=== PATIENT | female | born 1975 | race Hispanic/Latino ===

== ENCOUNTER 2016-08-21 06:36 | Inpatient (IN) | payer BC, OTHER ==
[2016-05-15 13:35] VITALS: BMI 30.1
--- NOTE | 2016-08-21 07:19 | OBHP ---
Datetime: 08/21/2016 07:13 IP Adm Impression: Term, intrauterine ; Active labor IP Admit Plan: Admit to unit; Initiate labor protocol Admit Comment, IP Provider: Chief complaint-contractions HPI 40 y/i at38.5 wga with c/o contractions since yesterday.Patient denies vaginal bleeding, loss of fluid.reports active movement.Denies nausea, vomiting, headache, chest pain, shortness of breath, numbness or tingling in hands and feet coure AMA; PNC with dr lerma PMH denies PSH denies OBGYN HX -NVDX2 at term Social hx denies tobacco,alcohol or illicit drug use Exam see exam section A/P 40 y/o at 38.5 wga in labor -admit -see orders -discussed with dr lerma Pelvic Type - PN: Adequate Extremities - PN: Normal Abdomen - PN: Normal Back - PN: Normal Lungs - PN: Normal Heart - PN: Normal Neurologic - PN: Normal General - PN: Normal Weight - Estimated: 3200 Presentation-Admit: Vertex Contraction Comments Provider: irregular Gestation - Est Wks by US: 38.5 IP Hx Assessment: The History has been Reviewed and is Current EGA AdmitDate IP: 38.5 Vital Signs Provider: Reviewed; Within Normal Limits IP Chief Complaint: Uterine contractions FHR Category Provider Fetus A: Category I Dilatation, Provider: 3-4 Effacement, Provider: 70 Station, Provider: -2 Genitourinary Exam: Normal DTRs - PN: Normal
--- NOTE | 2016-08-21 07:29 | OBHP ---
Datetime: 08/21/2016 07:13 Admit Comment, IP Provider: Chief complaint-contractions HPI 40 y/o at38.5 wga with c/o contractions since yesterday.Patient denies vaginal bleeding, loss of fluid.reports active movement.Denies nausea, vomiting, headache, chest pain, shortness of breath, numbness or tingling in hands and feet coure AMA; PNC with dr lerma PMH denies PSH denies OBGYN HX -NVDX2 at term Social hx denies tobacco,alcohol or illicit drug use Exam see exam section A/P 40 y/o at 38.5 wga in labor -admit -see orders -discussed with dr lerma 7.28 am correction patient is 41y/o and not 40 y/o
--- NOTE | 2016-08-21 07:30 | OBADHP ---
Datetime: 08/21/2016 07:13 Admit Comment, IP Provider: Chief complaint-contractions HPI 41 y/o at38.5 wga with c/o contractions since yesterday.Patient denies vaginal bleeding, loss of fluid.reports active movement.Denies nausea, vomiting, headache, chest pain, shortness of breath, numbness or tingling in hands and feet coure AMA; PNC with dr lerma PMH vertigo PSH mole removalx2; beaast biopsy OBGYN HX -NVDX2 at term Social hx denies tobacco,alcohol or illicit drug use Exam see exam section A/P 41 y/o at 38.5 wga in labor -admit -see orders -discussed with dr lerma Pelvic Type - PN: Adequate Extremities - PN: Normal Abdomen - PN: Normal Back - PN: Normal Lungs - PN: Normal Heart - PN: Normal Neurologic - PN: Normal General - PN: Normal Weight - Estimated: 3200 Presentation-Admit: Vertex Contraction Comments Provider: irregular Gestation - Est Wks by US: 38.5 IP Hx Assessment: The History has been Reviewed and is Current Vital Signs Provider: Reviewed; Within Normal Limits IP Chief Complaint: Uterine contractions FHR Category Provider Fetus A: Category I Dilatation, Provider: 3-4 Effacement, Provider: 70 Station, Provider: -2 Genitourinary Exam: Normal DTRs - PN: Normal EGA AdmitDate IP: 38.5 IP Adm Impression: Term, intrauterine ; Active labor IP Admit Plan: Admit to unit; Initiate labor protocol Datetime: 05/15/2016 14:54 FHR - Baseline A Provider: 140 Comments, ACOG Physical Exam: Abdomen garvid and non tender; no rebound or guadring; no cva tenderne ss Speculum exam vulva no lesions vagina no blood; physiologic appearing discharge cervix closed/thick and high NICHD Variability Prov Fetus A: Moderate 6-25bpm NICHD Decel Fetus A IP Provider: None
[2016-08-21] MEDS ORDERED: Oxytocin 30 UNIT 500 ML IV PRN (07:31)
[2016-08-21] MEDS ORDERED: Oxytocin 30 UNIT 500 ML IV ONE (07:44)
[2016-08-21 07:59] LABS: BASO % 0.3 % (0.0-2.0); EOS # 0.1 K/uL (0.0-0.7); EOS % 0.9 % (0.0-4.0); HEMATOCRIT 32.9 % (34.0-47.0); LYMPH # 2.2 K/uL (1.0-4.3); LYMPH % 25.7 % (20.0-40.0); MEAN CELL VOLUME 80.2 fL (81.0-99.0); MEAN CORPUSCULAR HEMOGLOBIN 26.3 pg (27.0-31.0); MEAN CORPUSCULAR HGB CONC 32.8 g/dL (33.0-37.0); MEAN PLATELET VOLUME 9.4 fL (7.2-11.7); MONO # 0.7 K/uL (0.0-0.8); MONO % 8.2 % (0.0-10.0); RED CELL DISTRIBUTION WIDTH 14.4 % (11.5-14.5); WHITE BLOOD COUNT 8.5 K/uL (4.8-10.8)
[2016-08-21 08:14] LABS: RBC URINE 33 /hpf (0-3); URINE BACTERIA OCC (<OCC); URINE BILIRUBIN NEGATIVE (NEGATIVE); URINE BLOOD 2+ (NEGATIVE); URINE COLOR Amber (YELLOW); URINE GLUCOSE (UA) NORMAL (Normal); URINE KETONE NEGATIVE (NEGATIVE); URINE LEUKOCYTE ESTERASE 3+ Leu/uL (Negative); URINE PROTEIN 1+ mg/dL (NEGATIVE); URINE UROBILINOGEN NORMAL mg/dL (0.2-1.0); WBC URINE 116 /hpf (0-5)
[2016-08-21 08:15] LABS: CHLORIDE 101 mmol/L (98-107); SODIUM 135 mmol/L (132-148)
[2016-08-21 08:16] LABS: POTASSIUM 4.1 mmol/L (3.6-5.2)
[2016-08-21 08:18] LABS: ALB/GLOB RATIO 1.1 (1.0-2.1); ALKALINE PHOSPHATASE 115 U/L (38-126); ALT/SGPT 8 U/L (9-52); AST/SGOT 23 U/L (14-36); BILIRUBIN,TOTAL 0.5 mg/dL (0.2-1.3); BLOOD UREA NITROGEN 13 mg/dL (7-17); CALCIUM 8.5 mg/dl (8.6-10.4); CARBON DIOXIDE 21 mmol/L (22-30); GFR AFRICAN-AMERICAN > 60; GLUCOSE,RANDOM 81 mg/dL (65-105); TOTAL PROTEIN 6.9 g/dL (6.3-8.3)
[2016-08-21] MEDS ORDERED: Bupivacaine 0.125%/FentaNYL 200 ML EPI ONE (12:10)
--- NOTE | 2016-08-21 13:42 | OBPN ---
Datetime: 08/21/2016 13:36 IP Progress Impression: Normal progression of labor; Reassuring heart rate IP Informed Consent Obtain: Vaginal Delivery IP Procedures: Artificial ROM IP Progress Plan: Continue present management; Augmentation Membranes, Provider: Ruptured Amniotic Fluid Color, Provider: Clear Contraction Comments Provider: q 2-3 min FHR - Baseline A Provider: 140 Gestation - Est Wks by US: 38.5 Presentation-Admit: Vertex IP Progress Note Comment: Pt seen and examined after admission, examined, c/o of increasing pain s/p epidural VSS EFM: see above TOCO: q 2-3 min Pitocin 12 mu/min a/p AROM, clear fluid A/P P2 @ 38.5 wks GA AMA in labor -s/p AROM -cont pitocin as per protocol -Currently tracing Victoria I, if Cat II/ or decels will d/c pitocoin, oxygne, left lateral decubitus psoiton, -cont current managment Vital Signs Provider: Reviewed; Within Normal Limits NICHD Accel Fetus A IP Provider: 15X15 NICHD Variability Prov Fetus A: Moderate 6-25bpm Dilatation, Provider: 5 Effacement, Provider: 80 Station, Provider: -2 NICHD Decel Fetus A IP Provider: Variable Datetime: 08/21/2016 07:13 Weight - Estimated: 3200 FHR Category Provider Fetus A: Category I
[2016-08-21] MEDS ORDERED: cefOXitin IV 2 gm in Dextrose 50 ML IVPB ONE (16:57)
[2016-08-21] MEDS ORDERED: Sodium Citrate/Citric Acid 15 ml Sol PO STA (16:58)
[2016-08-21] MEDS ORDERED: Sodium Citrate/Citric Acid 15 ml Sol ONE (16:58)
[2016-08-21] MEDS: cefOXitin IV 2 gm in Dextrose 50 ML IVPB SCH (17:00)
[2016-08-21] MEDS ORDERED: Oxytocin 20 units in LR 2,000 ML IV ONE (17:03)
--- NOTE | 2016-08-21 17:06 | OBPN ---
Datetime: 08/21/2016 17:03 IP Progress Impression: Reassuring heart rate IP Informed Consent Obtain: Section Delivery IP Progress Plan: Deliver- Section Membranes, Provider: Ruptured Contraction Comments Provider: q 2-3 min FHR - Baseline A Provider: 145 Gestation - Est Wks by US: 38.5 Presentation-Admit: Vertex IP Progress Note Comment: Pt seen adn examiend with recurrent declerlation despite oxygen, left late ral ivh unable to continue wiht piotocn due ot anorml trancing iwth failure ot progress r/b/a/i of primary cesearen section not limited to bleeding, infection, injury to bowel bladder or other organs, blood transfuion pt agreed, consent signed VSS VE see above Pitocin d/c A/P P2 @ 38.5 wks with NRFHT remote from delivery -for PLTCS -OR/Anesthesia aware Vital Signs Provider: Reviewed FHR Category Provider Fetus A: Category II NICHD Variability Prov Fetus A: Moderate 6-25bpm Dilatation, Provider: 6 Effacement, Provider: 80 Station, Provider: -2 NICHD Decel Fetus A IP Provider: Late; Prolonged
[2016-08-21] MEDS ORDERED: Lidocaine 2% MPF (5 ml) Inj ONE (17:11)
[2016-08-21] MEDS ORDERED: Morphine 1 mg/ml preservative-free Inj(Duramorph) ONE (17:13)
[2016-08-21] MEDS ORDERED: Oxycodone/Acetaminophen 5/325 mg Tab PO PRN (17:19)
[2016-08-21] MEDS ORDERED: Acetaminophen IV 1,000 MG in Premixed IV 1 EA IV STA (18:23)
[2016-08-21] MEDS ORDERED: Naloxone 0.4 mg/ml Inj (Adult) IVP PRN (18:24)
[2016-08-21] MEDS ORDERED: ePHEDrine 50 mg/ml Inj ONE (18:34)
--- NOTE | 2016-08-21 18:43 | PCM.SURG1 ---
Surgeon's Initial Post Op Note - Surgeon's Notes Surgeon: Sera Muñoz MD Scientific Director: John Pelletier MD Type of Anesthesia: Spinal Anesthesia Administered By: Dr Deng Pre-Operative Diagnosis: Non reassuring heart tracing, remote from delivery Operative Findings: Live female infant, cephalic presention, compound presentation, ebl 700 weight of 8lbs 4 ounces, normal uterus, tubes and ovaries bilaterally, striper present at delivery. Dr Pelletier was salesperson surgical appliances and was present for entire case and essential in ganing entry, retraction, expsouer, holding bladder blade, helping to push up head, deliverign , closing all layers, obtaining hemostasis. Post-Operative Diagnosis: same as above Operation Performed: primary low transverse cesearean section Specimen/Specimens Removed: placenta Estimated Blood Loss: EBL {In ML}: 700 Blood Products Given: N/A Drains Used: No Drains Post-Op Condition: Good Date of Surgery/Procedure: 08/21/16 Time of Surgery/Procedure: 17:30
--- NOTE | 2016-08-21 18:50 | OBDS ---
DELIVERY PERSONNEL Delivery Doctor: Trey Muñoz MD Scrub Nurse: Karen Catherine OBT Lithostripper: Chana Cam RN/kim Anesthesiologist: omkar MATERNAL INFORMATION Delivery Anesthesia: Epidural; Spinal Medications in Delivery: pitocin 20/iv tylanol Estimated Blood Loss (ml): 700 Placenta Cultured: Yes Maternal Complications: Other Other Maternal Complications: category 2,none reasuring fhr Provider Comments: live femlae infatn, compound presentation, nuchal x 1 reduced, agpars 9,9 weight of 8bls 4 ounces ebl 700, ivf 2000ml LABOR SUMMARY EDC: 08/30/2016 00:00 No. Babies in Womb: 1 Attempted: No Labor Anesthesia: Epidural LABOR INFORMATION Onset of Labor: 08/21/2016 15:00 Oxytocin: Augmentation Group B Beta Strep: Negative Antibiotics # of Doses: 1 Antibiotics Time of Last Dose: 1700 Steroids Given: None Reason Steroids Not Administered: Not Applicable MEMBRANES Membranes Rupture Method: Artificial Amniotic Fluid Color: Clear Amniotic Fluid Amount: Moderate Amniotic Fluid Odor: Normal STAGES OF LABOR Stage 3 hrs: 0 Stage 3 min: 1 Total Time in Labor hrs: 2 Total Time in Labor min: 34 VAGINAL DELIVERY Episiotomy: None Laceration Extension: N/A Laceration Type: None CSECTION DELIVERY Primary Indication: iup 38.5 pc/s Secondary Indication: distress CSection Urgency: Emergency CSection Incidence: Primary Labor: Labor Elective: Nonelective CSection Incision: Lower Uterine Transverse BABY A INFORMATION Delivery Date/Time: 08/21/2016 17:33 Method of Delivery: Born in Route : No : N/A Forceps: N/A Vacuum Extraction: N/A Shoulder Dystocia : No SHOULDER DYSTOCIA BABY A Delivery Date/Time: 08/21/2016 17:33 PRESENTATION/POSITION BABY A Presentation: Cephalic Cephalic Presentation: compound Breech Presentation: N/A PLACENTA INFORMATION BABY A Placenta Delivery Time : 08/21/2016 17:34 Placenta Method of Delivery: Manual Removal Placenta Status: Delivered SCORES BABY A Heart Rate 1 min: >100 bpm Resp Effort 1 min: Good Cry Reflex Irritability 1 min: Cough or Sneeze or Pulls Away Muscle Tone 1 min: Active Motion Color 1 min: Body [place], Extremities Blue Resuscitation Effort 1 min: Tactile Stimulation SCORE 1 MIN: 9 Heart Rate 5 min: >100 bpm Resp Effort 5 min: Good Cry Reflex Irritability 5 min: Cough or Sneeze or Pulls Away Muscle Tone 5 min: Active Motion Color 5 min: Body [place], Extremities Blue SCORE 5 MIN: 9 INFORMATION BABY A Gestational Age at Delivery: 38.5 Gestational Status: Term Outcome : Liveborn Infant Condition : Stable Infant Sex: Female IDENTIFICATION/MEDS BABY A ID Band Number: [id number] ID Band Location: Left Leg; Left Arm Sensor Applied: Yes Sensor Number: [id number] Sensor Location : Cord Clamp WEIGHT/LENGTH BABY A Birthweight (gms): 3745 Weight (lb): 8 Weight (oz): 4 Infant Length Inches: 20.00 Infant Length cms: 50.8 CORD INFORMATION BABY A No. Cord Vessels: 3 Nuchal Cord : Around Neck x1, Loose Cord Blood Taken: Yes Infant Suction: Mouth; Nose ASSESSMENT BABY A Infant Complications: None Infant Complications Other: none Physical Findings at Delivery: Within Normal Limits Infant Respirations: Appears Normal Bag Worker/ALS Called : No Care By: yen Transferred To: Remains with Mother
[2016-08-21 19:45] LABS: BASO % 0.2 % (0.0-2.0); EOS % 0.1 % (0.0-4.0); HEMATOCRIT 28.7 % (34.0-47.0); LYMPH # 1.3 K/uL (1.0-4.3); LYMPH % 10.2 % (20.0-40.0); MEAN CELL VOLUME 80.3 fL (81.0-99.0); MEAN CORPUSCULAR HGB CONC 32.3 g/dL (33.0-37.0); MEAN PLATELET VOLUME 9.3 fL (7.2-11.7); MONO # 0.6 K/uL (0.0-0.8); MONO % 4.7 % (0.0-10.0); RED CELL DISTRIBUTION WIDTH 14.2 % (11.5-14.5); WHITE BLOOD COUNT 12.6 K/uL (4.8-10.8)
[2016-08-21 20:05] LABS: CHLORIDE 100 mmol/L (98-107); POTASSIUM 4.3 mmol/L (3.6-5.2); SODIUM 132 mmol/L (132-148)
[2016-08-21 20:07] LABS: GFR AFRICAN-AMERICAN > 60
[2016-08-21 20:08] LABS: ALKALINE PHOSPHATASE 98 U/L (38-126); ALT/SGPT 15 U/L (9-52); AST/SGOT 24 U/L (14-36); BILIRUBIN,TOTAL 0.6 mg/dL (0.2-1.3); BLOOD UREA NITROGEN 10 mg/dL (7-17); CALCIUM 7.9 mg/dl (8.6-10.4); CARBON DIOXIDE 22 mmol/L (22-30); GLUCOSE,RANDOM 86 mg/dL (65-105); TOTAL PROTEIN 5.5 g/dL (6.3-8.3); URIC ACID 5.6 mg/dL (2.2-7.5)
[2016-08-21] MEDS: Simethicone 80 mg Chewtab PO SCH (22:54)
[2016-08-21] MEDS: Lactated Ringer's 1,000 ML IV SCH (23:00)
[2016-08-22] MEDS: cefOXitin IV 2 gm in Dextrose 50 ML IVPB SCH ×3 (00:38→17:09)
[2016-08-22] MEDS: Simethicone 80 mg Chewtab PO SCH ×5 (03:30→22:47)
[2016-08-22 07:32] LABS: BASO % 0.2 % (0.0-2.0); EOS % 0.1 % (0.0-4.0); HEMATOCRIT 25.7 % (34.0-47.0); LYMPH # 1.4 K/uL (1.0-4.3); LYMPH % 13.7 % (20.0-40.0); MEAN CELL VOLUME 80.4 fL (81.0-99.0); MEAN CORPUSCULAR HEMOGLOBIN 26.4 pg (27.0-31.0); MEAN CORPUSCULAR HGB CONC 32.9 g/dL (33.0-37.0); MEAN PLATELET VOLUME 9.2 fL (7.2-11.7); MONO # 0.6 K/uL (0.0-0.8); MONO % 5.6 % (0.0-10.0); RED CELL DISTRIBUTION WIDTH 14.6 % (11.5-14.5)
[2016-08-22] MEDS: Lactated Ringer's 1,000 ML IV SCH ×2 (09:14→14:34)
[2016-08-22] MEDS: Prenatal Multivit/Folic Acid/Iron Tab PO SCH (09:18)
[2016-08-22] MEDS ORDERED: Bisacodyl 5mg EC Tab PO ONE (17:20)
[2016-08-22] MEDS: Oxycodone/Acetaminophen 5/325 mg Tab PO PRN ×2 (18:40→22:47)
[2016-08-23] MEDS: Oxycodone/Acetaminophen 5/325 mg Tab PO PRN ×4 (06:20→21:32)
[2016-08-23 07:20] LABS: BASO % 0.3 % (0.0-2.0); EOS # 0.1 K/uL (0.0-0.7); EOS % 1.8 % (0.0-4.0); HEMATOCRIT 22.7 % (34.0-47.0); LYMPH # 1.9 K/uL (1.0-4.3); LYMPH % 23.1 % (20.0-40.0); MEAN CELL VOLUME 80.2 fL (81.0-99.0); MEAN CORPUSCULAR HEMOGLOBIN 26.3 pg (27.0-31.0); MEAN CORPUSCULAR HGB CONC 32.8 g/dL (33.0-37.0); MONO # 0.5 K/uL (0.0-0.8); MONO % 5.7 % (0.0-10.0); RED CELL DISTRIBUTION WIDTH 14.6 % (11.5-14.5); WHITE BLOOD COUNT 8.2 K/uL (4.8-10.8)
[2016-08-23] MEDS: Prenatal Multivit/Folic Acid/Iron Tab PO SCH (09:37)
[2016-08-23] MEDS: Simethicone 80 mg Chewtab PO SCH ×4 (09:37→21:36)
[2016-08-23 16:41] LABS: BASO % 0.3 % (0.0-2.0); EOS # 0.3 K/uL (0.0-0.7); EOS % 2.4 % (0.0-4.0); LYMPH # 2.9 K/uL (1.0-4.3); LYMPH % 25.4 % (20.0-40.0); MEAN CELL VOLUME 80.8 fL (81.0-99.0); MEAN CORPUSCULAR HGB CONC 33.4 g/dL (33.0-37.0); MEAN PLATELET VOLUME 9.1 fL (7.2-11.7); MONO # 0.7 K/uL (0.0-0.8); MONO % 6.1 % (0.0-10.0); RED CELL DISTRIBUTION WIDTH 14.7 % (11.5-14.5); WHITE BLOOD COUNT 11.2 K/uL (4.8-10.8)
--- NOTE | 2016-08-24 03:38 | OBPPN ---
Datetime: 08/24/2016 03:37 PP Pain Prov: Within normal limits PP Nausea Prov: Denies PP Flatus Prov: Yes PP BM Prov: No PP Breasts Prov: Normal PP Heart Prov: Normal PP Lungs Prov: Normal PP Abdomen/Uterus Prov: Normal PP Lochia Prov: Normal PP Vulva/Perineum Prov: Normal PP CVA Tenderness Prov: Normal PP Extremities Prov: Normal PP C/S Incision Prov: Normal PP Progress Prov: Normal PP Comments Phys Exam Prov: incsion c/d/i PP Plan Prov: Continue present management IP PP Procedures: None Vital Signs Provider PP: Reviewed; Within Normal Limits Datetime: 08/24/2016 03:35 PP Impression Prov: Normal progression PP Progress Note Prov: DELAYED ENTRY: PT seen and examined 08/22/16 9am pt with no complaints vss pe see above a/p s/p PLTCS POD #1 doing well -pain mangent -out of bed -d/c welch -advance diet -am labs
--- NOTE | 2016-08-24 03:40 | OBPPN ---
Datetime: 08/24/2016 03:38 PP Pain Prov: Within normal limits PP Nausea Prov: Denies PP Flatus Prov: Yes PP BM Prov: Yes PP Breasts Prov: Normal PP Heart Prov: Normal PP Lungs Prov: Normal PP Abdomen/Uterus Prov: Normal PP Lochia Prov: Normal PP Vulva/Perineum Prov: Normal PP CVA Tenderness Prov: Normal PP Extremities Prov: Normal PP C/S Incision Prov: Normal PP Progress Prov: Normal PP Impression Prov: Normal progression PP Plan Prov: Continue present management; Discharge PP Progress Note Prov: pt seen sleeping vikash little with no ocmplaint vss pe see above a/p s/p pltcs POD #3 with [facility] acute blood loss anemia, stable for discharge -d/c in A -rto 1 week for staple removal -precautins given IP PP Procedures: None Vital Signs Provider PP: Reviewed; Within Normal Limits
--- NOTE | 2016-08-24 03:40 | OBDCSUM ---
Datetime: 08/24/2016 03:39 Discharged to, Provider: Home Follow up at, Provider: Dr Muñoz Disch Instr Activity: Normal activity Disch Instr Diet: Regular Discharge Instructions, Provider: Routine instructions given Discharge Diagnosis, Provider: Term Delivered Discharge Time: 08/24/2016 09:00 Disch Referrals: None Contraception discussed, Prov: Yes Disch Activity Restrictions: No exercising; No lifting; No sexual activity; Nothing in vagina - Inte rcourse, tampons, douche Discharge Comment, Provider: rto 1 week for staple removal Contraception after Delivery: Not Planning to Use
[2016-08-24] MEDS: Oxycodone/Acetaminophen 5/325 mg Tab PO PRN ×2 (06:16→14:26)
--- NOTE | 2016-08-24 08:13 | OBPPN ---
Datetime: 08/24/2016 08:09 PP Pain Prov: Within normal limits PP Nausea Prov: Denies PP Flatus Prov: Yes PP BM Prov: Yes PP Abdomen/Uterus Prov: Normal PP Lochia Prov: Normal PP Extremities Prov: Normal PP C/S Incision Prov: Normal PP Comments Phys Exam Prov: fudus below umblicus incision clean and dry ext no edema,no caklf ten PP Impression Prov: Normal progression PP Plan Prov: Discharge PP Progress Note Prov: pt was seen at bed side, pain under control,no n/v, tolerating deit,min lochi a, flatus+ pod#3 s/p c/s dc home no sex percocet prn f/u on saturday for cleopatra removal Vital Signs Provider PP: Reviewed; Within Normal Limits
[2016-08-24] MEDS: Simethicone 80 mg Chewtab PO SCH (14:26)
[2016-08-24] MEDS: Prenatal Multivit/Folic Acid/Iron Tab PO SCH (14:27)
[2016-08-24 18:15] VITALS: BP 146/83; RESP 20; TEMP 97.5; O2SAT 97
[2016-08-24 18:25] VITALS: PULSE 108
--- NOTE | 2016-08-26 07:55 | OP ---
PROCEDURE DATE: 08/21/2016 SURGEON: Dr. Sera Muñoz EXHIBIT CLEANER: Dr. John Pelletier TYPE OF ANESTHESIA: Spinal. ANESTHESIA ADMINISTERED BY: Dr. Aguilar PREOPERATIVE DIAGNOSIS: Nonreassuring heart tracing, remote from delivery. POSTOPERATIVE DIAGNOSIS: Nonreassuring heart tracing, remote from delivery. OPERATIVE FINDINGS: Live female infant, cephalic presentation, compound presentation. EBL 700 mL. Weight of 8 pounds 4 ounces. Normal uterus, tubes, and ovaries bilaterally. Apgars 9 and 9. Pediat rician present at delivery. Dr. Pelletier was the ophthalmology surgical technician and was present for the entire case and essential in gaining entr y, retraction, exposure, holding the bladder blade, helping to push the head up, delivering infant, c losing all layers and maintaining hemostasis. OPERATION PERFORMED: Primary low transverse section. SPECIMEN REMOVED: Placenta. ESTIMATED BLOOD LOSS: 700 mL. BLOOD PRODUCTS: None. COMPLICATIONS: None. The patient was taken to the operating room where she was given spinal anesthesia. Once this was fou nd to be adequate, she was positioned on the operating table in dorsal supine position and then prepp ed and draped in usual sterile fashion. Timeout was performed to confirm correct patient, correct pr ocedure. The patient was given preoperative prophylactic antibiotics. A Pfannenstiel skin incision was made with the scalpel and carried in line to the underlying fascia with the Bovie. The fascia wa s incised in the midline and the incision extended laterally with Bovie. Inferior aspect of the fasc ial incision was grasped, elevated with Mika clamps and the underlying rectus muscles were dissecte d off bluntly. Attention was then turned to the superior aspect, which in a similar fashion, was gra sped, elevated with Mika clamps and the underlying rectus muscles dissected off bluntly. Rectus mu scles were then bluntly in the midline. The peritoneum identified, entered bluntly in a cl ear space. Incision extended laterally and superiorly until there was good visualization of the blad vane. The lower end of the Tomas was then inserted. The lower uterine segment was incised in a tra nsverse fashion and the uterine incision was extended laterally bluntly. The surgeon's hand entered the uterine cavity and the head was brought up to the uterine incision and delivered atraumatically w ith assistance given by adequate exposure. The infant's head was delivered atraumatically with compo und presentation of the hand noted. There was atraumatic delivery of the anterior and posterior shou lders, followed by the rest of the body. Both oral and nasal passages of the baby were bulb suctione d. Umbilical cord was clamped and cut and the baby was handed off to the waiting television analyzer. Cord blood and cord gases were collected and sent x 2. There was a nuchal cord noted, which was loosely reduced prior to cutting of the umbilical cord. The placenta was then delivered manually. Uterus wa s exteriorized and cleared of all clots and debris. The uterine incision was repaired with 0 Vicryl in running continuous locked fashion. A second layer of the same suture was used to close the uterus in a running imbricated manner. There were normal tubes and ovaries bilaterally. The uterus was th en returned to the abdomen and the paracolic gutters were cleared of all clots and debris. There was good hemostasis at the uterine incision site. The peritoneum was reapproximated with 2-0 chromic in a running continuous fashion. The rectus was reapproximated and closed with 2-0 chromic in an inter rupted manner. The subcutaneous space was closed with 2-0 plain in an interrupted manner and the ski n was reapproximated and closed with cleopatra. At the end of the procedure, all needle, sponge and in strument counts were noted to be correct x 2. The patient tolerated the procedure well and was trans ferred to the recovery room in stable condition. Sera Muñoz MD cc: [id number] TT: 08/26/2016 07:54:46 en
== END 2016-08-24 18:00 | disposition home or self-care (01) | DRG 766 ==
LOC: C.EROB 06:36 → C.4D 07:21 → C.4M 22:25
PROVIDERS: ADMIT Obstetrics & Gynecology; ATTEND Obstetrics & Gynecology
PROC: 10D00Z1 Extraction of Products of Conception, Low, Open Approach (ICD-10-PCS; principal; 2016-08-21)
DX: O32.6XX0 Maternal care for compound presentation, not applicable or unspecified (principal); O76 Abnormality in fetal heart rate and rhythm complicating labor and delivery; O09.523 Supervision of elderly multigravida, third trimester; Z3A.38 38 weeks gestation of pregnancy; Z37.0 Single live birth